=== PATIENT | female | born 1935 | race Caucasian/White ===

== ENCOUNTER 2022-09-25 22:33 | Emergency (ER) | payer MEDICARE, SELFPAY ==
--- NOTE | ~2022-09-25 | CT_ITS ---
Non-contrast Head CT History: Status post fall Technique: Axial non-contrast imaging of the brain was performed. Dose reduction technique was used on this scan by utilizing automated exposure control and iterative reconstruction technique. The dose -length product (DLP) was 681.00 mGy-cm. Findings: Questionable small hemorrhagic contusion in the left frontal lobe versus beam hardening art ifact (axial image 32). There is an arachnoid cyst at the right cerebellopontine angle, measuring aram roximately 3.3 x 1.7 cm. No acute infarct seen. There are minimal chronic white matter changes in the periventricular white matter bilaterally. The ventricles and subarachnoid spaces are normal in size. The calvarium appears normal. The visualized paranasal sinuses and mastoid air cells are clear. Impression: Questionable small focal hemorrhagic contusion at the left frontal lobe versus beam hardening artifac t and associated artifactual increased density. 3.3 x 1.7 cm right cerebellopontine angle arachnoid cyst. Reviewed, dictated and finalized at location . Impression: Questionable small focal hemorrhagic contusion at the left frontal lobe versus beam hardening artifact and associated artifactual increased density. 3.3 x 1.7 cm right cerebellopontine angle arachnoid cyst.
--- NOTE | ~2022-09-25 | XR_ITS ---
Portable chest x-ray Comparison: None Clinical History: Shortness of breath Findings: Lungs are clear, without focal consolidation or pleural effusion. Cardiomediastinal silho uette is enlarged. Bones and soft tissues are unremarkable. Impression: Clear lungs. Questionable COPD. Cardiomegaly. Reviewed, dictated and finalized at location . Impression: Clear lungs. Questionable COPD. Cardiomegaly.
[2022-09-25 22:36] VITALS: BP 147/84; PULSE 83; RESP 18; TEMP 36.3; O2SAT 97
--- NOTE | 2022-09-26 00:52 | ED.GENADULT ---
HPI - General Adult General Chief complaint: Fall Stated complaint: fall, head injury Time Seen by Provider: 09/25/22 23:12 History of Present Illness HPI narrative: This is a pleasant 87-year-old female presenting ED after a fall at home. She was trying to kill a spider in her bathroom when she tripped and fell over backwards. She did hit the back of her head but no loss of consciousness. She is on Eliquis. At this time she has no injuries. Patient has dementia at baseline is A&O times 1-2. She is accompanied by her 2 daughters. Exam Narrative: APPEARANCE: No apparent distress. Head: atraumatic. EYES: EOMI, NOSE: Atraumatic NECK: Trachea midline RESPIRATORY: No increased rate of breathing , clear to auscultation CARDIOVASCULAR: RRR, no peripheral edema ABDOMINAL: Non-distended soft no guarding or rebound MUSCULOSKELETAl: head to toe trauma exam was negative for injury NEURO: Alert.Cranial nerves 2-12 grossly intact. Sensation light touch, motor function cerebellar function intact for 4 extremities. Gait exam was normal. SKIN:: Warm, dry. Normal color PSYCHIATRIC: Normal affect Course Vital Signs Vital signs: Vital Signs Temperature 97.3 F L 09/25/22 22:36 Pulse Rate 83 09/25/22 22:36 Respiratory Rate 18 09/25/22 22:36 Blood Pressure 147/84 H 09/25/22 22:36 Pulse Oximetry 97 09/25/22 22:36 Oxygen Delivery Room Air 09/25/22 22:36 Temperature 97.3 F L 09/25/22 22:36 Pulse Rate 75 09/26/22 01:58 Respiratory Rate 17 09/26/22 01:58 Blood Pressure 157/84 H 09/26/22 01:58 Pulse Oximetry 99 09/26/22 01:58 Oxygen Delivery Room Air 09/25/22 22:36 Medical Decision Making MDM Narrative Medical decision making narrative: -Presentation: 87-year-old female presenting after fall on Eliquis. CT head has been ordered. Family has requested screening lab work and UA. -DDX includes but is not limited to: intracranial hemorrhage, closed head injury, dehydration, UTI, pneumonia -Co-morbidities complicating care: dementia, anticoagulation -Social determinants of health: patient is retired and used to work as a area secretary at [employer], she stays with her daughters -External Chart Review: none -Hx from independent Sources: daughters at bedside -Independent interpretation of studies: CT head negative for acute intracranial injury. BC normal. Metabolic panel creatinine of 1.2 but we have no baseline to compare. Urine showed +4 bacteria and positive nitrites but no white blood cells or leuk esterase. We discussed risk/benefits of treatment versus waiting for culture results with family and is she is asymptomatic we will wait for culture results. Chest x-ray showed cardiomegaly but no acute findings. Patient has no respiratory complaints this time -Discussion of Management/Consultants: None -Dx tests considered but not ordered: none -Procedures: none -Interventions: none -Shared decision making / Disposition: Patient's workup was negative. She is able to walk with a steady gait. Patient will be discharged home with primary care follow-up and return precautions. -RX Vital Signs Vital Signs: Vital Signs Temperature 97.3 F L 09/25/22 22:36 Pulse Rate 83 09/25/22 22:36 Respiratory Rate 18 09/25/22 22:36 Blood Pressure 147/84 H 09/25/22 22:36 Pulse Oximetry 97 09/25/22 22:36 Oxygen Delivery Room Air 09/25/22 22:36 Temperature 97.3 F L 09/25/22 22:36 Pulse Rate 75 09/26/22 01:58 Respiratory Rate 17 09/26/22 01:58 Blood Pressure 157/84 H 09/26/22 01:58 Pulse Oximetry 99 09/26/22 01:58 Oxygen Delivery Room Air 09/25/22 22:36 Lab Data 09/26/22 00:54 09/26/22 00:54 Labs: Lab Results 09/26/22 09/26/22 Range/Units 00:54 01:26 WBC 10.6 H (4.5-10.0) K/mm3 RBC 3.99 L (4.2-5.4) M/mm3 Hgb 12.1 (12.0-15.0) g/dL Hct 39.2 (37.0-47.0) % MCV 98.2 (80-100)
[2022-09-26 01:00] LABS: Basophils Percent Auto 0.4 % (0.2-1.2); Eosinophils Absolute Auto 0.1 K/mm3 (0-0.3); Eosinophils Percent Auto 0.9 % (0-4.4); Hematocrit 39.2 % (37.0-47.0); Hemoglobin 12.1 g/dL (12.0-15.0); Immature Granulocyte Absolute 0.04 K/mm3 (0.00-0.031); Immature Granulocyte Percent A 0.4 % (0-0.5); Lymphocytes Absolute Auto 1.21 K/mm3 (0.9-3.2); Lymphocytes Percent Auto 11.4 % (18.3-44.2); Mean Corpuscular HGB Conc 30.9 g/dl (32-36); Mean Corpuscular Hemoglobin 30.3 pg (26-34); Mean Corpuscular Volume 98.2 fl (80-100); Mean Platelet Volume 8.7 fl (7.4-10.4); Monocytes Absolute Auto 0.8 K/mm3 (0.1-0.6); Monocytes Percent Auto 7.9 % (2.6-8.5); Neutrophils Absolute Auto 8.4 K/mm3 (1.3-6.7); Platelet Count Result 273 k/mm3 (150-375); Red Blood Count 3.99 M/mm3 (4.2-5.4); White Blood Count 10.6 K/mm3 (4.5-10.0)
[2022-09-26 01:08] LABS: Anion Gap 3 mmol/L (8-16); Blood Urea Nitrogen 25 mg/dL (7-17); Calcium 8.8 mg/dL (8.4-10.2); Carbon Dioxide 30 mmol/L (22-30); Chloride 107 mmol/L (98-107); Estimated CRCL calculation 33 ml/min; Estimated Glomerular Filt Rate 42; Glucose 125 mg/dL (65-110); Potassium 3.5 mmol/L (3.4-5.0); Sodium 140 mmol/L (137-145)
[2022-09-26 01:58] VITALS: BP 157/84; PULSE 75; RESP 17; O2SAT 99
[2022-09-26 02:07] LABS: Appearance Urine Clear (Clear); Bacteria Urine 4+ /hpf; Bilirubin Urine Negative (Negative); Blood Urine Trace (Negative); Color Urine Yellow (Yellow); Glucose Urine UA Negative (Negative); Ketones Urine Negative (Negative); Leukocyte Esterase Ur Negative LEU/UL (Negative); Need Manual Microscopic Reviewed; Nitrate Urine Positive (Negative); Protein Urine 1+ mg/dL (Negative); RBC Urine 0-2 /hpf (0-2); Specific Grav Ur 1.016 (1.001-1.035); Squamous Epithelial Cell Urine None seen /hpf (Few); Urobilinogen Urine 0.2 mg/dL (<2.0); WBC Urine 0-5 /hpf; pH Urine 5.5 (5.0-9.0)
[2022-09-26 02:08] LABS: Add Urine Microscopic? YES; Mucus Urine Present /lpf
== END 2022-09-26 02:42 | disposition home or self-care (01) ==
PROVIDERS: Emergency Provider Emergency Medicine
DX: S09.90XA Unspecified injury of head, initial encounter (principal); F03.90 Unspecified dementia, unspecified severity, without behavioral disturbance, psychotic disturbance, mood disturbance, and anxiety; Z79.01 Long term (current) use of anticoagulants; W01.0XXA Fall on same level from slipping, tripping and stumbling without subsequent striking against object, initial encounter; Y92.002 Bathroom of unspecified non-institutional (private) residence as the place of occurrence of the external cause
CPT/HCPCS: 36415; 70450; 71045; 80048; 81001; 85025; 99284

== ENCOUNTER 2023-01-07 19:05 | Inpatient (IN) | payer MEDICARE, SELFPAY ==
--- NOTE | ~2023-01-07 | XR_ITS ---
EXAMINATION: XR chest 2V DATE: 01/11/2023 09:43 INDICATION: Pneumonia. TECHNIQUE: Frontal and lateral views of the chest were obtained. COMPARISON: Chest single view 01/07/2023 FINDINGS: There is a large hiatal hernia. There are tiny pleural effusions. There are airspace opacit ies at left lung base. No pneumothorax. Cardiomegaly is noted. IMPRESSION: 1. Airspace opacities at left lung base, consistent with atelectasis versus pneumonia. 2. Tiny pleural effusions. 3. Cardiomegaly. 4. Large hiatal hernia. Reviewed, dictated and finalized at location A. IMPRESSION: 1. Airspace opacities at left lung base, consistent with atelectasis versus pne umonia. 2. Tiny pleural effusions. 3. Cardiomegaly. 4. Large hiatal hernia.
--- NOTE | ~2023-01-07 | XR_ITS ---
EXAMINATION: XR chest 1V portable DATE: 01/07/2023 23:02 INDICATION: Wheezing. Fever and chills. TECHNIQUE: A single frontal view of the chest was obtained. COMPARISON: Chest single view 09/26/2022 FINDINGS: The patient is rotated to her left. There is mild atelectasis in lingula. No pleural effusi on or pneumothorax. Cardiomegaly is noted. There is a large hiatal hernia. IMPRESSION: 1. Mild atelectasis in lingula. 2. Cardiomegaly. 3. Large hiatal hernia. Reviewed, dictated and finalized at location A.
[2023-01-07 19:15] VITALS: BP 155/105; PULSE 96; RESP 22; TEMP 37.8; O2SAT 96
[2023-01-07 20:55] LABS: Appearance Urine Slightly Cloudy (Clear); Bilirubin Urine Negative (Negative); Blood Urine Trace-lysed (Negative); Color Urine Yellow (Yellow); Glucose Urine UA Negative (Negative); Ketones Urine Negative (Negative); Leukocyte Esterase Ur Negative LEU/UL (Negative); Nitrate Urine Positive (Negative); Protein Urine 1+ mg/dL (Negative); Specific Grav Ur 1.015 (1.001-1.035); Urobilinogen Urine 0.2 mg/dL (<2.0)
[2023-01-07 20:57] LABS: Bacteria Urine 4+ /hpf; Non Pathogenic Casts 0-2; Squamous Epithelial Cell Urine None seen /hpf (Few); WBC Urine 0-5 /hpf
[2023-01-07 20:58] LABS: Add Urine Microscopic? YES
--- NOTE | 2023-01-07 21:59 | ED.NAVMDI ---
HPI - Nausea/Vomiting/Diarrhea General Chief complaint: Nausea/Vomiting/Diarrhea <Beatriz Rhodes APRN - Last Filed: 01/08/23 03:43> Stated complaint: nausea, vomiting, chills <Beatriz Rhodes APRN - Last Filed: 01/08/23 03:43> Time Seen by Provider: 01/07/23 21:52 <Beatriz Rhodes APRN - Last Filed: 01/08/23 03:43> Source: patient and family (daughters at bedside) <Beatriz Rhodes APRN - Last Filed: 01/08/23 03:43> Mode of arrival: ambulatory <Beatriz Rhodes APRN - Last Filed: 01/08/23 03:43> Limitations: no limitations <Beatriz Rhodes APRN - Last Filed: 01/08/23 03:43> History of Present Illness HPI Narrative: patient is a pleasant 87-year-old female with a past medical history as noted below presents emergency department today ambulatory with both of her daughters for evaluation of generalized fatigue, fever, chills that started about 5 this evening. She has had 1 episode of vomiting and has been nauseated. She denies having any significant diarrhea. She denies any chest pain. She does state that she feels a little bit more short of breath than normal recently. Per her daughter's her breathing with the wheezing and increased rate has been normal for her over the last year but she did seem more weak today and short of breath starting around 6 pm. she also hasn't been eating or drinking much. Patient denies any abdominal pain. Denies any pain with urination. Denies any known exposure to any illness or the flu. Denies recent falls. Denies any cough. <Beatriz Rhodes APRN - Last Filed: 01/08/23 03:43> Related Data Home medications: Home Medications Medication Instructions Recorded Confirmed apixaban 5 mg tablet (Eliquis) 5 mg PO BID 01/07/23 01/08/23 diltiazem HCl 120 mg tablet 120 mg PO BID 01/07/23 01/08/23 ferrous sulfate 325 mg (65 mg 325 mg PO TIDWMEAL 01/07/23 01/08/23 iron) tablet folic acid 1 mg tablet 1 mg PO DAILY 01/07/23 01/08/23 furosemide 20 mg tablet 20 mg PO DAILY 01/07/23 01/08/23 latanoprost 0.005 % eye drops 1 drp EACH EYE HS 01/07/23 01/08/23 levothyroxine 25 mcg tablet 25 mcg PO DAILY 01/07/23 01/08/23 metoprolol succinate 100 mg 200 mg PO DAILY 01/07/23 01/08/23 tablet,extended release 24 hr simvastatin 20 mg tablet 20 mg PO HS 01/07/23 01/08/23 acidophilus 100 million 1 cap PO DAILY 01/08/23 01/08/23 cell-pectin, citrus 10 mg capsule cholecalciferol (vitamin D3) 125 125 mcg PO DAILY 01/08/23 01/08/23 mcg (5,000 unit) capsule cyanocobalamin (vitamin B-12) 100 100 mcg PO EVERY OTHER DAY 01/08/23 01/08/23 mcg tablet vit C 250 mg-vit E 90 mg-zinc 40 1 tablet PO BID 01/08/23 01/08/23 mg-copper 1 [id number] capsule (PreserVision AREDS-2) <Beatriz Rhodes APRN - Last Filed: 01/08/23 03:43> Allergies/Adverse reactions: Allergies Allergy/AdvReac Type Severity Reaction Status Date / Time cephalexin [From Keflex] Allergy Hives Verified 01/08/23 04:15 <Beatriz Rhodes APRN - Last Filed: 01/08/23 03:43> Review of Systems Review of Systems: CONSTITUTIONAL: +fever/chills, generalized malaise and fatigue. denies sweats. decreased appeitite. EYES: Denies visual changes, redness, or discharge. ENT: Denies rhinorrhea, congestion, sore throat, or otalgia. CARDIOVASCULAR: Denies chest pain, palpitations, or edema. RESPIRATORY:+ increased SOB, denies any new cough. GASTROINTESTINAL: +nausea persistently since yesterday, 1 episode of vomiting. denies diarrhea. denies abdominal pain. GENITOURINARY: Denies dysuria or hematuria. SKIN: Denies rash or itching. MUSCULOSKELETAL: Denies back pain, joint pain, or myalgia. NEUROLOGIC: Denies headache, numbness, or unilateral weakness. PSYCHIATRIC: Denies anxiety or depression. <Beatriz Rhodes APRN - Last Filed: 01/08/23 03:43> All systems reviewed & are unremarkable except as noted in HPI and below <Beatriz Rhodes APRN - Last Filed: 01/08/23 03:43> [facility] Family History Family Histo
--- NOTE | 2023-01-07 22:53 | ECG_ITS ---
Measurements Intervals [place] Rate: 96 P: PA: 0 QRS: 36 QRSD: 132 T: -23 QT: 359 QTc: 454 Interpretive Statements ATRIAL FIBRILLATION INTRAVENTRICULAR CONDUCTION DELAY [130+ ms QRS DURATION] ABNORMAL ECG NO PREVIOUS ECG AVAILABLE FOR COMPARISON Electronically Signed On 01-08-2023 9:29:23 CDT by Wilbur Castillo M.D.
--- NOTE | 2023-01-07 23:18 | PC.NURSE ---
Report given to QING Casiano, no questions/concerns. Care of pt transferred.
[2023-01-07] MEDS: SODIUM CHLORIDE 0.9% IV 1,000 ML 999 ML IV CONT (23:20)
[2023-01-07] MEDS: ACETAMINOPHEN 500 MG TABLET 1000 MG PO (23:20)
[2023-01-07] MEDS: ONDANSETRON INJ 4 MG/2 ML VIAL IV PUSH (23:22)
[2023-01-07] MEDS: FAMOTIDINE 20 MG/2 ML VIAL IV PUSH (23:22)
--- NOTE | 2023-01-07 23:29 | PC.NURSE ---
Report received from QING Deras. Assumed care of patient at this time. Patients family request to give patient her scheduled home nightly meds. ERP states that is okay. Patient given nightly meds she brought with her as well as placed on 2L via NC for RA sat of 88%. ERP notified.
[2023-01-07 23:31] VITALS: O2SAT 96
[2023-01-07 23:48] VITALS: BP 180/90; PULSE 107; RESP 34; O2SAT 98
[2023-01-07 23:50] VITALS: TEMP 36.7
[2023-01-08] VITALS (17 sets, daily range): BP systolic 114–154; BP diastolic 53–91; PULSE 54–91; RESP 18–27; TEMP 35.8–36.9; O2SAT 88–99; BMI 45.1
[2023-01-08 00:06] LABS: Alanine Aminotransferase 116 U/L (6-35); Albumin Level 3.4 g/dL (3.5-5.1); Alkaline Phosphatase 121 U/L (38-126); Anion Gap 6 mmol/L (8-16); Aspartate Amino Transferase 96 U/L (14-36); Bilirubin,Total 1.1 mg/dL (0.2-1.3); Blood Urea Nitrogen 21 mg/dL (7-17); Carbon Dioxide 24 mmol/L (22-30); Chloride 102 mmol/L (98-107); Estimated CRCL calculation 32 ml/min; Estimated Glomerular Filt Rate 39; Glucose 131 mg/dL (65-110); Lactic Acid Reflex 0.9 mmol/L (0.7-2.0); Lipase 117 U/L (23-300); Magnesium 1.8 mg/dL (1.6-2.3); Potassium 3.6 mmol/L (3.4-5.0); Sodium 132 mmol/L (137-145)
[2023-01-08 00:07] LABS: Basophils Percent Auto 0.2 % (0.2-1.2); Hemoglobin 11.4 g/dL (12.0-15.0); Immature Granulocyte Absolute 0.08 K/mm3 (0.00-0.031); Immature Granulocyte Percent A 0.5 % (0-0.5); Lymphocytes Absolute Auto 0.45 K/mm3 (0.9-3.2); Lymphocytes Percent Auto 2.9 % (18.3-44.2); Mean Corpuscular HGB Conc 31.7 g/dl (32-36); Mean Corpuscular Hemoglobin 30.8 pg (26-34); Mean Corpuscular Volume 97.3 fl (80-100); Mean Platelet Volume 9.2 fl (7.4-10.4); Monocytes Absolute Auto 1.4 K/mm3 (0.1-0.6); Monocytes Percent Auto 8.9 % (2.6-8.5); Neutrophils Absolute Auto 13.4 K/mm3 (1.3-6.7); Neutrophils Percent Auto 87.5 % (45.5-73.1); Platelet Count Result 241 k/mm3 (150-375); Red Cell Distribution Width 14.1 % (11.5-14.5); White Blood Count 15.3 K/mm3 (4.5-10.0)
[2023-01-08 00:17] LABS: Troponin I 0.019 ng/mL (0.000-0.034)
[2023-01-08 00:57] LABS: NT Pro B Type Natriuretic Pept 6700 pg/mL (19.9-100)
[2023-01-08 01:22] LABS: INR 1.7; Prothrombin Time 20.8 Seconds (11.1-14.7)
[2023-01-08 01:35] LABS: Influenza A QL RT-PCR Negative (Negative); Influenza B QL RT-PCR Negative (Negative); SARS-CoV-2 RNA PCR Negative (Negative)
[2023-01-08 01:38] LABS: D Dimer 0.78 ug/mL (<0.48)
[2023-01-08] MEDS: levoFLOXacin 750 MG/D5W 150 ML 750 MG/150 ML BAG 100 MG IVPB (02:24)
--- NOTE | 2023-01-08 03:13 | PC.NURSE ---
Patient ambulated to the bathroom with a stand by assist. Patient changed and new brief applied.
--- NOTE | 2023-01-08 04:00 | ADMGEN ---
This patient, Araseli Jeronimo, was admitted to 2 Medical Room 253-01. Patient/family oriented to hospital policies and general routines including ID bracelet, bed and alarms, visiting hours, pain management, procedures, bathroom and other care routines, personal items, smoking policy, room service/diet, and visiting hours. Information on how to activate the Rapid Response Team has been discussed. Patient/Family are encouraged to report perceived risks to care and to ask questions if they do not understand what they are told or what they should do.
--- NOTE | 2023-01-08 05:05 | PM.IMHP ---
H&P: HPI History of Present Illness Date/Time: 01/08/23 05:05 Chief Complaint: Patient was brought to the ER for evaluation for generalized fatigue, fever and chills Narrative: She is an 87 years old morbidly obese female who lives with family. She was brought to the ER for evaluation by her daughters as she is complaining of generalized fatigue, fever and chills that started yesterday afternoon at around 5:00 p.m. She also had nausea with one episode of vomiting. She also gets little bit more short of breath than usual with normal activity recently. She felt more weak than her baseline. She also has not been eating or drinking much. Workup was done in the ER which showed UTI and dehydration. She has been started on IV fluids, IV antibiotics and is being admitted for medical management and close monitoring. Review of Systems Review of Systems: she denies any chest pain, palpitations, loss of consciousness, falls or blurred vision All systems reviewed & are unremarkable except as noted in HPI and below PMFSH Past Medical History Medical History (Updated 01/08/23 @ 05:12 by Nicholas Amaya MD) Obstructive sleep apnea Family History Family History Father Emphysema lung Sibling Lung cancer Mother Dementia Heart disease Sibling Kidney cancer, primary, with metastasis from kidney to other site Social History Social History Smoking status: Never smoker Alcohol intake: never Substance use: never Lack of Transportation: No Lack of Food: Never True Current Housing: I Have Housing Concerned About Future Housing: No Difficulty Paying Gas/Electric Bills: No Difficulty Paying for Meds: No Currently Unemployed: No Education: High School Diploma/GED Difficulty w/ Childcare or Family Care: No Spiritual care concerns: No Meds Home Medications and Allergies Home Medications Medication Instructions Recorded Confirmed Type apixaban 5 mg tablet (Eliquis) 5 mg PO BID 01/07/23 01/08/23 History diltiazem HCl 120 mg tablet 120 mg PO BID 01/07/23 01/08/23 History ferrous sulfate 325 mg (65 mg 325 mg PO TIDWMEAL 01/07/23 01/08/23 History iron) tablet folic acid 1 mg tablet 1 mg PO DAILY 01/07/23 01/08/23 History furosemide 20 mg tablet 20 mg PO DAILY 01/07/23 01/08/23 History latanoprost 0.005 % eye drops 1 drp EACH EYE HS 01/07/23 01/08/23 History levothyroxine 25 mcg tablet 25 mcg PO DAILY 01/07/23 01/08/23 History metoprolol succinate 100 mg 200 mg PO DAILY 01/07/23 01/08/23 History tablet,extended release 24 hr simvastatin 20 mg tablet 20 mg PO HS 01/07/23 01/08/23 History acidophilus 100 million 1 cap PO DAILY 01/08/23 01/08/23 History cell-pectin, citrus 10 mg capsule cholecalciferol (vitamin D3) 125 125 mcg PO DAILY 01/08/23 01/08/23 History mcg (5,000 unit) capsule cyanocobalamin (vitamin B-12) 100 100 mcg PO EVERY OTHER DAY 01/08/23 01/08/23 History mcg tablet vit C 250 mg-vit E 90 mg-zinc 40 1 tablet PO BID 01/08/23 01/08/23 History mg-copper 1 [id number]-[id number] capsule (PreserVision AREDS-2) Allergies Allergy/AdvReac Type Severity Reaction Status Date / Time cephalexin [From Keflex] Allergy Hives Verified 01/08/23 04:15 Vital Signs Vital Signs - 24 hr 01/08/23 01:45 01/07/23 19:15 01/07/23 23:31 Temperature 37.8 C H Pulse Rate 96 Respiratory Rate 22 H Blood Pressure 155/105 H Pulse Oximetry 96 96 Pulse Oximetry [digit-finger] 88 L Oxygen Delivery Room Air Nasal Cannula Oxygen Flow Rate 2 01/07/23 23:48 01/08/23 00:33 01/07/23 23:50 Temperature 36.7 C 36.7 C Pulse Rate 107 H 91 Respiratory Rate 34 H 27 H Blood Pressure 180/90 H 153/62 H Pulse Oximetry 98 93 Pulse Oximetry [digit-finger] Oxygen Delivery Oxygen Flow Rate 01/08/23 02:32 01/08/23 02:33 01/08/23 02:45 Temperature Pulse Rate 62 62
[2023-01-08] MEDS: SODIUM CHLORIDE 0.9% IV 1,000 ML 75 ML IV CONT ×2 (05:51→20:21)
[2023-01-08] MEDS: POTASSIUM CHLORIDE 20 MEQ ER TABLET 40 MEQ PO (05:52)
[2023-01-08] MEDS: LEVOTHYROXINE SODIUM 25 MCG TABLET PO (05:52)
[2023-01-08 08:05] LABS: Anion Gap 5 mmol/L (8-16); Blood Urea Nitrogen 22 mg/dL (7-17); Calcium 7.7 mg/dL (8.4-10.2); Carbon Dioxide 28 mmol/L (22-30); Chloride 103 mmol/L (98-107); Estimated CRCL calculation 28 ml/min; Estimated Glomerular Filt Rate 36; Glucose 97 mg/dL (65-110); Magnesium 1.8 mg/dL (1.6-2.3); Potassium 3.7 mmol/L (3.4-5.0); Sodium 136 mmol/L (137-145)
--- NOTE | 2023-01-08 08:14 | PM.IMPN ---
Progress Note: A&P Assessment and Plan (1) Acute UTI: Code(s): N39.0 - Urinary tract infection, site not specified Status: Acute Assessment and Plan: Continue Levaquin started 01/08 (2) Fever: Code(s): R50.9 - Fever, unspecified Status: Acute Assessment and Plan: See above (3) Generalized weakness: Code(s): R53.1 - Weakness Status: Acute Assessment and Plan: Likely secondary to dehydration, reassess after IV fluid resuscitation (4) Oxygen desaturation during sleep: Code(s): G47.34 - Idiopathic sleep related nonobstructive alveolar hypoventilation Status: Acute (5) Nausea & vomiting: Code(s): R11.2 - Nausea with vomiting, unspecified Status: Acute (6) Hypertension: Code(s): I10 - Essential (primary) hypertension Status: Acute Assessment and Plan: Blood pressures reviewed 01/08 (7) Obstructive sleep apnea: Code(s): G47.33 - Obstructive sleep apnea (adult) (pediatric) Status: Acute Plan DVT prophylaxis with SCDs GI prophylaxis not indicated Code status full code Subjective Date/time seen: 01/08/23 08:14 Interval history: 87-year-old female with history of sleep apnea is presenting with fatigue and fever and currently being treated for UTI and dehydration. No overnight events noted. No chest pain or shortness of breath. No nausea, vomiting or diarrhea. No fevers or chills. Review of Systems Review of Systems: 12 point review of systems was assessed and was negative except as noted in the HPI Exam Narrative: General: No acute distress, alert and oriented per baseline HEENT: Atraumatic, normocephalic, mucous membranes moist CV: Regular rate and rhythm, S1, S2 Lungs: Clear to auscultation bilaterally, no rales or crackles noted, no wheezes, good air entry Abdomen: Soft, nontender, nondistended Extremities: Normal to inspection Skin: No rashes noted, no lesions or wounds seen Psych: Euthymic, normal affect Objective Data Vital Signs Vital Signs: Vital Signs - 24 hr 01/08/23 01:45 01/07/23 19:15 01/07/23 23:31 Temperature 100.0 F H Pulse Rate 96 Respiratory Rate 22 H Blood Pressure 155/105 H Pulse Oximetry 96 96 Pulse Oximetry [digit-finger] 88 L Oxygen Delivery Room Air Nasal Cannula Oxygen Flow Rate 2 01/07/23 23:48 01/08/23 00:33 01/07/23 23:50 Temperature 98.1 F 98.1 F Pulse Rate 107 H 91 Respiratory Rate 34 H 27 H Blood Pressure 180/90 H 153/62 H Pulse Oximetry 98 93 Pulse Oximetry [digit-finger] Oxygen Delivery Oxygen Flow Rate 01/08/23 02:32 01/08/23 02:33 01/08/23 02:45 Temperature Pulse Rate 62 62 54 L Respiratory Rate 26 H 26 H Blood Pressure 117/91 H Pulse Oximetry 94 94 92 Pulse Oximetry [digit-finger] Oxygen Delivery Oxygen Flow Rate 01/08/23 03:00 01/08/23 03:35 01/08/23 03:41 Temperature Pulse Rate 68 56 L 61 Respiratory Rate 25 H 20 19 Blood Pressure 114/53 L 114/53 L Pulse Oximetry 93 93 Pulse Oximetry [digit-finger] Oxygen Delivery Oxygen Flow Rate 01/08/23 03:58 01/08/23 04:02 01/08/23 04:27 Temperature 96.4 F L 96.4 F L Pulse Rate 71 71 Respiratory Rate 20 20 Blood Pressure 130/61 130/61 Pulse Oximetry 99 99 99 Pulse Oximetry [digit-finger] Oxygen Delivery Nasal Cannula Oxygen Flow Rate 2 Intake/Output Intake/Output: Intake & Output 01/05/23 01/06/23 01/07/23 01/08/23 23:59 23:59 23:59 23:59 Intake Total 1150 Output Total 300 Balance 850 Meds/Results Medications: Active Medications Generic Name Dose Route Start Last Admin Trade Name Freq PRN Reason Stop Dose Admin Acetaminophen 650 mg 01/08/23 05:16 Acetaminophen 325 Mg Tablet PO Q4H PRN Mild Pain (1-3) or Fever Al Hydrox/Mg Hydrox/Simethicone 30 ml 01/08/23 05:16 Mag Hydrox/Al Hydrox/Simeth 30 Ml Udc PO QID
[2023-01-08] MEDS: CHOLECALCIFEROL 1,000 UNITS TABLET 5000 UNITS PO (08:23)
[2023-01-08] MEDS: dilTIAZem HCL 60 MG TABLET 120 MG PO ×2 (08:24→20:21)
[2023-01-08] MEDS: APIXABAN 5 MG TABLET PO ×2 (08:24→20:21)
[2023-01-08] MEDS: ACIDOPHILUS/BULGARICUS CHEWABLE TABLET 1 TABLET BY MOUTH (08:24)
[2023-01-08] MEDS: OPTI-GEN TAB 1 TABLET PO (08:27)
[2023-01-08] MEDS: METOPROLOL SUCCINATE EXT REL 100 MG TABCR 200 MG PO (08:27)
[2023-01-08] MEDS: FOLIC ACID 1 MG TABLET PO (08:27)
[2023-01-08] MEDS: FERROUS SULFATE 325 MG TABLET DR BY MOUTH ×3 (08:27→16:58)
[2023-01-08] MEDS: CYANOCOBALAMIN 250 MCG TABLET PO (08:27)
[2023-01-08 08:33] LABS: Basophils Percent Auto 0.3 % (0.2-1.2); Eosinophils Percent Auto 0.2 % (0-4.4); Hematocrit 35.9 % (37.0-47.0); Hemoglobin 11.1 g/dL (12.0-15.0); Immature Granulocyte Absolute 0.07 K/mm3 (0.00-0.031); Immature Granulocyte Percent A 0.6 % (0-0.5); Lymphocytes Absolute Auto 0.62 K/mm3 (0.9-3.2); Lymphocytes Percent Auto 5.1 % (18.3-44.2); Mean Corpuscular HGB Conc 30.9 g/dl (32-36); Mean Corpuscular Hemoglobin 30.5 pg (26-34); Mean Corpuscular Volume 98.6 fl (80-100); Mean Platelet Volume 9.2 fl (7.4-10.4); Monocytes Absolute Auto 1.1 K/mm3 (0.1-0.6); Monocytes Percent Auto 9.1 % (2.6-8.5); Neutrophils Absolute Auto 10.4 K/mm3 (1.3-6.7); Neutrophils Percent Auto 84.7 % (45.5-73.1); Platelet Count Result 208 k/mm3 (150-375); Red Blood Count 3.64 M/mm3 (4.2-5.4); White Blood Count 12.3 K/mm3 (4.5-10.0)
[2023-01-08] MEDS: SIMVASTATIN 20 MG TABLET PO (20:21)
[2023-01-08] MEDS: LATANOPROST 0.005% OP SOLN 2.5 ML BTL 1 DROP EACH EYE (20:22)
[2023-01-08] MEDS: TOLNAFTATE 1% POWDER 45 GM BTL 1 APPLIC TOPICAL (22:53)
[2023-01-09] VITALS: BP 154/73; PULSE 107; RESP 20; TEMP 36.6; O2SAT 94
[2023-01-09 04:00] VITALS: BP 137/77; PULSE 90; RESP 32; TEMP 36.4; O2SAT 100
[2023-01-09 05:53] LABS: Basophils Percent Auto 0.3 % (0.2-1.2); Hematocrit 36.4 % (37.0-47.0); Hemoglobin 10.8 g/dL (12.0-15.0); Immature Granulocyte Absolute 0.08 K/mm3 (0.00-0.031); Immature Granulocyte Percent A 0.7 % (0-0.5); Lymphocytes Absolute Auto 0.51 K/mm3 (0.9-3.2); Lymphocytes Percent Auto 4.4 % (18.3-44.2); Mean Corpuscular HGB Conc 29.7 g/dl (32-36); Mean Corpuscular Hemoglobin 30.6 pg (26-34); Mean Corpuscular Volume 103.1 fl (80-100); Mean Platelet Volume 9.2 fl (7.4-10.4); Monocytes Absolute Auto 1.1 K/mm3 (0.1-0.6); Monocytes Percent Auto 9.7 % (2.6-8.5); Neutrophils Absolute Auto 9.7 K/mm3 (1.3-6.7); Neutrophils Percent Auto 84.9 % (45.5-73.1); Platelet Count Result 199 k/mm3 (150-375); Red Blood Count 3.53 M/mm3 (4.2-5.4); White Blood Count 11.5 K/mm3 (4.5-10.0)
[2023-01-09 06:05] LABS: Alanine Aminotransferase 68 U/L (6-35); Alkaline Phosphatase 130 U/L (38-126); Anion Gap 6 mmol/L (8-16); Aspartate Amino Transferase 35 U/L (14-36); Bilirubin,Total 0.6 mg/dL (0.2-1.3); Blood Urea Nitrogen 24 mg/dL (7-17); Calcium 8.1 mg/dL (8.4-10.2); Carbon Dioxide 22 mmol/L (22-30); Chloride 106 mmol/L (98-107); Estimated CRCL calculation 32 ml/min; Estimated Glomerular Filt Rate 42; Glucose 120 mg/dL (65-110); Potassium 4.3 mmol/L (3.4-5.0); Sodium 134 mmol/L (137-145)
[2023-01-09] MEDS: LEVOTHYROXINE SODIUM 25 MCG TABLET PO (06:32)
[2023-01-09 09:04] VITALS: BP 144/78; PULSE 77; RESP 18; TEMP 36.6; O2SAT 97
[2023-01-09 09:26] VITALS: PULSE 87
[2023-01-09] MEDS: FERROUS SULFATE 325 MG TABLET DR BY MOUTH ×3 (09:26→17:20)
[2023-01-09] MEDS: METOPROLOL SUCCINATE EXT REL 100 MG TABCR 200 MG PO (09:26)
[2023-01-09] MEDS: dilTIAZem HCL 60 MG TABLET 120 MG PO ×2 (09:26→21:09)
[2023-01-09] MEDS: OPTI-GEN TAB 1 TABLET PO (09:26)
[2023-01-09] MEDS: APIXABAN 5 MG TABLET PO ×2 (09:26→21:09)
[2023-01-09] MEDS: FOLIC ACID 1 MG TABLET PO (09:26)
[2023-01-09] MEDS: CHOLECALCIFEROL 1,000 UNITS TABLET 5000 UNITS PO (09:28)
[2023-01-09] MEDS: ACIDOPHILUS/BULGARICUS CHEWABLE TABLET 1 TABLET BY MOUTH (09:29)
[2023-01-09] MEDS: SODIUM CHLORIDE 0.9% IV 1,000 ML 75 ML IV CONT ×2 (09:29→21:09)
[2023-01-09] MEDS: TOLNAFTATE 1% POWDER 45 GM BTL 1 APPLIC TOPICAL ×2 (09:30→21:09)
--- NOTE | 2023-01-09 11:07 | PM.IMPN ---
Progress Note: A&P Assessment and Plan (1) Acute UTI: Code(s): N39.0 - Urinary tract infection, site not specified Status: Acute Assessment and Plan: Continue Levaquin started 01/08 (2) Fever: Code(s): R50.9 - Fever, unspecified Status: Acute Assessment and Plan: See above (3) Generalized weakness: Code(s): R53.1 - Weakness Status: Acute Assessment and Plan: Likely secondary to dehydration, reassess after IV fluid resuscitation (4) Oxygen desaturation during sleep: Code(s): G47.34 - Idiopathic sleep related nonobstructive alveolar hypoventilation Status: Acute (5) Nausea & vomiting: Code(s): R11.2 - Nausea with vomiting, unspecified Status: Acute (6) Hypertension: Code(s): I10 - Essential (primary) hypertension Status: Acute Assessment and Plan: Blood pressures reviewed 01/09 (7) Obstructive sleep apnea: Code(s): G47.33 - Obstructive sleep apnea (adult) (pediatric) Status: Acute (8) Bacteremia: Code(s): R78.81 - Bacteremia Status: Acute Assessment and Plan: 1 of 4 blood cultures positive for Gram-negative bacilli, repeat pending, only found in the aerobic bottle Clinically improving, continue current management Plan DVT prophylaxis with SCDs GI prophylaxis not indicated Code status full code Subjective Date/time seen: 01/09/23 11:07 Interval history: 87-year-old female with history of sleep apnea is presenting with fatigue and fever and currently being treated for UTI and dehydration. No overnight events noted. No chest pain or shortness of breath. No nausea, vomiting or diarrhea. No fevers or chills. Review of Systems Review of Systems: 12 point review of systems was assessed and was negative except as noted in the HPI Exam Narrative: General: No acute distress, alert and oriented per baseline HEENT: Atraumatic, normocephalic, mucous membranes moist CV: Regular rate and rhythm, S1, S2 Lungs: Clear to auscultation bilaterally, no rales or crackles noted, no wheezes, good air entry Abdomen: Soft, nontender, nondistended Extremities: Normal to inspection Skin: No rashes noted, no lesions or wounds seen Psych: Euthymic, normal affect Objective Data Vital Signs Vital Signs: Vital Signs - 24 hr 01/08/23 13:28 01/08/23 17:05 01/08/23 20:00 Temperature 98.5 F 98.1 F 98.3 F Pulse Rate 78 86 89 Respiratory Rate 18 18 20 Blood Pressure 138/67 154/75 H 152/80 H Pulse Oximetry 96 98 99 Oxygen Delivery 01/08/23 20:00 01/08/23 20:00 01/09/23 00:00 Temperature 98.3 F 97.9 F Pulse Rate 89 107 H Respiratory Rate 20 20 Blood Pressure 152/80 H 154/73 H Pulse Oximetry 99 94 Oxygen Delivery Room Air 01/09/23 00:00 01/09/23 04:00 01/09/23 09:04 Temperature 97.9 F 97.5 F L 97.8 F Pulse Rate 107 H 90 77 Respiratory Rate 20 32 H 18 Blood Pressure 154/73 H 137/77 144/78 H Pulse Oximetry 94 100 97 Oxygen Delivery 01/09/23 09:26 Temperature Pulse Rate 87 Respiratory Rate Blood Pressure Pulse Oximetry Oxygen Delivery Intake/Output Intake/Output: Intake & Output 01/06/23 01/07/23 01/08/23 01/09/23 23:59 23:59 23:59 23:59 Intake Total 2820 1630 Output Total 700 200 Balance 2120 1430 Meds/Results Medications: Active Medications Generic Name Dose Route Start Last Admin Trade Name Freq PRN Reason Stop Dose Admin Acetaminophen 650 mg 01/08/23 05:16 Acetaminophen 325 Mg Tablet PO Q4H PRN Mild Pain (1-3) or Fever Al Hydrox/Mg Hydrox/Simethicone 30 ml 01/08/23 05:16 Mag Hydrox/Al Hydrox/Simeth 30 Ml Udc PO QID PRN Dyspepsia Apixaban 5 mg 01/08/23 09:00 01/09/23 09:26 Apixaban 5 Mg Tablet PO 5 mg Q12HR JOSE MARTIN Administration Cyanocobalamin 250 mcg 01/08/23 09:00 01/08/23 08:27 Cyanocobalamin 250 Mcg Tablet PO 250 mcg Q48H
[2023-01-09 16:02] VITALS: BP 145/76; PULSE 69; RESP 16; TEMP 36; O2SAT 93
[2023-01-09 21:08] VITALS: BP 125/70; PULSE 89; RESP 12; TEMP 36.9; O2SAT 93
[2023-01-09] MEDS: LATANOPROST 0.005% OP SOLN 2.5 ML BTL 1 DROP EACH EYE (21:08)
[2023-01-09] MEDS: levoFLOXacin 750 MG/D5W 150 ML 750 MG/150 ML BAG 100 MG IVPB (21:09)
[2023-01-09] MEDS: SIMVASTATIN 20 MG TABLET PO (21:09)
[2023-01-10] VITALS (8 sets, daily range): BP systolic 126–149; BP diastolic 69–84; PULSE 72–93; RESP 13–18; TEMP 36.1–36.6; O2SAT 91–95
[2023-01-10] MEDS: ACETAMINOPHEN 325 MG TABLET 650 MG PO ×2 (01:13→20:26)
[2023-01-10] MEDS: traZODone HCL 50 MG TABLET PO ×2 (01:13→20:26)
[2023-01-10] MEDS: LEVOTHYROXINE SODIUM 25 MCG TABLET PO (05:42)
[2023-01-10 05:44] LABS: Basophils Percent Auto 0.4 % (0.2-1.2); Eosinophils Absolute Auto 0.1 K/mm3 (0-0.3); Hematocrit 32.8 % (37.0-47.0); Hemoglobin 9.8 g/dL (12.0-15.0); Immature Granulocyte Absolute 0.04 K/mm3 (0.00-0.031); Immature Granulocyte Percent A 0.5 % (0-0.5); Lymphocytes Absolute Auto 0.75 K/mm3 (0.9-3.2); Lymphocytes Percent Auto 9.4 % (18.3-44.2); Mean Corpuscular HGB Conc 29.9 g/dl (32-36); Mean Corpuscular Hemoglobin 30.5 pg (26-34); Mean Corpuscular Volume 102.2 fl (80-100); Monocytes Absolute Auto 1.3 K/mm3 (0.1-0.6); Monocytes Percent Auto 15.8 % (2.6-8.5); Neutrophils Absolute Auto 5.8 K/mm3 (1.3-6.7); Neutrophils Percent Auto 72.9 % (45.5-73.1); Platelet Count Result 188 k/mm3 (150-375); Red Blood Count 3.21 M/mm3 (4.2-5.4)
[2023-01-10 06:01] LABS: Alanine Aminotransferase 49 U/L (6-35); Albumin Level 2.7 g/dL (3.5-5.1); Alkaline Phosphatase 126 U/L (38-126); Anion Gap 4 mmol/L (8-16); Aspartate Amino Transferase 28 U/L (14-36); Bilirubin,Total 0.5 mg/dL (0.2-1.3); Blood Urea Nitrogen 29 mg/dL (7-17); Calcium 8.5 mg/dL (8.4-10.2); Carbon Dioxide 23 mmol/L (22-30); Chloride 109 mmol/L (98-107); Estimated CRCL calculation 32 ml/min; Estimated Glomerular Filt Rate 42; Glucose 96 mg/dL (65-110); Potassium 4.1 mmol/L (3.4-5.0); Sodium 136 mmol/L (137-145)
[2023-01-10] MEDS: CHOLECALCIFEROL 1,000 UNITS TABLET 5000 UNITS PO (08:51)
[2023-01-10] MEDS: ACIDOPHILUS/BULGARICUS CHEWABLE TABLET 1 TABLET BY MOUTH (08:53)
[2023-01-10] MEDS: dilTIAZem HCL 60 MG TABLET 120 MG PO ×2 (08:53→20:26)
[2023-01-10] MEDS: OPTI-GEN TAB 1 TABLET PO (08:53)
[2023-01-10] MEDS: CYANOCOBALAMIN 250 MCG TABLET PO (08:53)
[2023-01-10] MEDS: FOLIC ACID 1 MG TABLET PO (08:54)
[2023-01-10] MEDS: FERROUS SULFATE 325 MG TABLET DR BY MOUTH ×3 (08:54→18:18)
[2023-01-10] MEDS: APIXABAN 5 MG TABLET PO ×2 (08:54→20:26)
[2023-01-10] MEDS: METOPROLOL SUCCINATE EXT REL 100 MG TABCR 200 MG PO (08:54)
[2023-01-10] MEDS: TOLNAFTATE 1% POWDER 45 GM BTL 1 APPLIC TOPICAL ×2 (08:57→20:28)
--- NOTE | 2023-01-10 15:22 | PM.IMPN ---
Progress Note: A&P Assessment and Plan (1) Sepsis: Code(s): A41.9 - Sepsis, unspecified organism Status: Acute Assessment and Plan: Pateint presents with fever, leukocytosis, mild CHARLEY and elevated LFTs felt related to sepsis from UTI/bactermeia. UCx /8: EColi that is jordan-sensitive BCx 8: Klebsiella 1of2. Sensitivities pending. BCx 101/0: NGTD. CXR on admission showing mild atelectasis in lingula. Klebsiella could be from urine or PNA. Started on Levaquin and patient is improving. WBC normal. Allergy to cephalosporin. Follow up on cylture results. Repeat CXR. (2) Acute UTI: Code(s): N39.0 - Urinary tract infection, site not specified Status: Acute Assessment and Plan: UA noted and not too concerning for UTI but UCx positive. Continue Levaquin started 01/08 (3) Bacteremia: Code(s): R78.81 - Bacteremia Status: Acute Assessment and Plan: As above (4) Generalized weakness: Code(s): R53.1 - Weakness Status: Acute Assessment and Plan: Likely secondary to dehydration and sepsis. PT/OT (5) Oxygen desaturation during sleep: Code(s): G47.34 - Idiopathic sleep related nonobstructive alveolar hypoventilation Status: Acute Assessment and Plan: Check apnea link. Possibly related to KARISHMA. May need O2 at home (6) Hypertension: Code(s): I10 - Essential (primary) hypertension Status: Acute Assessment and Plan: Patient's blood pressure was reviewed on 01/10 Blood pressure remains well controlled. Will continue current medications. (7) Obstructive sleep apnea: Code(s): G47.33 - Obstructive sleep apnea (adult) (pediatric) Status: Acute Assessment and Plan: As above (8) Nausea & vomiting: Code(s): R11.2 - Nausea with vomiting, unspecified Status: Acute Assessment and Plan: Resolved Follow (9) Atrial fibrillation: Code(s): I48.91 - Unspecified atrial fibrillation Status: Acute Assessment and Plan: Patient with AFib noted by EKG. Suspect chronic. Continue Toprol to control rate. Continue Eliquis. Plan DVT prophylaxis with Eliquis GI prophylaxis not indicated Code status full code Subjective Date/time seen: 01/10/23 15:22 Interval history: 87-year-old female with history of sleep apnea is presenting with fatigue and fever and currently being treated for UTI and dehydration. Assuming care. Eating okay. Feels better. No CP or SOB. No cough. She is alert but confused so hx is suspect Review of Systems Review of Systems: ROS unobtainable: Yes unobtainable due to mental status Exam Narrative: AF 96.9 126/69 88 16 91% Gen - NARD Chest - Clear, distatn BS, nml RR CV - irregularly irregular Abd - Soft, NT/ND, Positive BS Ext - trace pedal edema Neuro - Alert, confused. Psych - Nml mood and affect Skin - Warm and dry Objective Data Vital Signs Vital Signs: Vital Signs - 24 hr 01/09/23 16:02 01/09/23 21:08 01/10/23 05:40 Temperature 96.8 F L 98.5 F 96.9 F L Pulse Rate 69 89 85 Respiratory Rate 16 12 13 Blood Pressure 145/76 H 125/70 126/69 Pulse Oximetry 93 93 93 Oxygen Delivery Oxygen Flow Rate 01/10/23 08:54 01/10/23 09:05 Temperature Pulse Rate 88 Respiratory Rate Blood Pressure Pulse Oximetry 91 Oxygen Delivery Nasal Cannula Oxygen Flow Rate 2 Intake/Output Intake/Output: Intake & Output 01/07/23 01/08/23 01/09/23 01/10/23 23:59 23:59 23:59 23:59 Intake Total 2820 3260 770 Output Total 700 450 450 Balance 2120 2810 320 Meds/Results Medications: Active Medications Generic Name Dose Route Start Last Admin Trade Name Freq PRN Reason Stop Dose Admin Acetaminophen 650 mg 01/08/23 05:16 01/10/23 01:13 Acetaminophen 325 Mg Tablet PO 650 mg Q4H PRN Administration Mild Pain (1-3) or Fever Al Hydrox/Mg Hydrox/Simeth
[2023-01-10] MEDS: SIMVASTATIN 20 MG TABLET PO (20:26)
[2023-01-10] MEDS: LATANOPROST 0.005% OP SOLN 2.5 ML BTL 1 DROP EACH EYE (20:27)
[2023-01-11] VITALS (12 sets, daily range): BP systolic 144–184; BP diastolic 83–94; PULSE 76–96; RESP 18–20; TEMP 36.2–36.8; O2SAT 86–100
[2023-01-11 06:06] LABS: Basophils Percent Auto 0.4 % (0.2-1.2); Eosinophils Absolute Auto 0.1 K/mm3 (0-0.3); Eosinophils Percent Auto 1.5 % (0-4.4); Hematocrit 32.9 % (37.0-47.0); Immature Granulocyte Absolute 0.05 K/mm3 (0.00-0.031); Immature Granulocyte Percent A 0.6 % (0-0.5); Lymphocytes Absolute Auto 1.01 K/mm3 (0.9-3.2); Lymphocytes Percent Auto 11.1 % (18.3-44.2); Mean Corpuscular HGB Conc 30.4 g/dl (32-36); Mean Corpuscular Hemoglobin 30.4 pg (26-34); Monocytes Absolute Auto 1.4 K/mm3 (0.1-0.6); Monocytes Percent Auto 15.4 % (2.6-8.5); Neutrophils Absolute Auto 6.5 K/mm3 (1.3-6.7); Platelet Count Result 227 k/mm3 (150-375); Red Blood Count 3.29 M/mm3 (4.2-5.4); Red Cell Distribution Width 13.8 % (11.5-14.5); White Blood Count 9.1 K/mm3 (4.5-10.0)
[2023-01-11 06:15] LABS: Albumin Level 2.8 g/dL (3.5-5.1); Anion Gap 4 mmol/L (8-16); Blood Urea Nitrogen 37 mg/dL (7-17); Calcium 9.2 mg/dL (8.4-10.2); Carbon Dioxide 25 mmol/L (22-30); Chloride 109 mmol/L (98-107); Estimated CRCL calculation 35 ml/min; Estimated Glomerular Filt Rate 47; Glucose 123 mg/dL (65-110); Phosphorus 3.4 mg/dL (2.5-4.5); Sodium 138 mmol/L (137-145)
[2023-01-11] MEDS: LEVOTHYROXINE SODIUM 25 MCG TABLET PO (06:17)
[2023-01-11 07:22] LABS: Folic Acid > 20.0 ng/mL (2.76->20); Vitamin B12 > 1000.0 pg/mL (239-931)
[2023-01-11] MEDS: ACIDOPHILUS/BULGARICUS CHEWABLE TABLET 1 TABLET BY MOUTH (08:05)
[2023-01-11] MEDS: dilTIAZem HCL 60 MG TABLET 120 MG PO ×2 (08:05→20:14)
[2023-01-11] MEDS: OPTI-GEN TAB 1 TABLET PO (08:05)
[2023-01-11] MEDS: FOLIC ACID 1 MG TABLET PO (08:05)
[2023-01-11] MEDS: METOPROLOL SUCCINATE EXT REL 100 MG TABCR 200 MG PO (08:05)
[2023-01-11] MEDS: CHOLECALCIFEROL 1,000 UNITS TABLET 5000 UNITS PO (08:05)
[2023-01-11] MEDS: APIXABAN 5 MG TABLET PO ×2 (08:05→20:14)
[2023-01-11] MEDS: FERROUS SULFATE 325 MG TABLET DR BY MOUTH ×3 (08:05→16:05)
[2023-01-11] MEDS: TOLNAFTATE 1% POWDER 45 GM BTL 1 APPLIC TOPICAL ×2 (08:06→20:16)
--- NOTE | 2023-01-11 09:51 | PC.NURSE ---
therapy informed this nurse that pt 02 drops with activity down to 85% RA, pt was able to recover to 94% with rest.
--- NOTE | 2023-01-11 15:14 | PC.NURSE ---
informed PFT of new home o2 evaluation placed by MD Spencer, MD Spencer would like to d.c pt today.
--- NOTE | 2023-01-11 15:19 | PC.NURSE ---
recheck bp 168/94 MD Spencer aware, NNO.
--- NOTE | 2023-01-11 15:20 | PC.NURSE ---
pt placed on ra per Md Spencer pt was stating at 100% on 2l nc in bed.
--- NOTE | 2023-01-11 15:41 | PC.NURSE ---
PFT conducting home . now
--- NOTE | 2023-01-11 15:57 | PC.NURSE ---
PFT informed this nurse that pt requires 2L of o2. MD Spencer informed.
--- NOTE | 2023-01-11 16:03 | PM.IMPN ---
Progress Note: A&P Assessment and Plan (1) Sepsis: Code(s): A41.9 - Sepsis, unspecified organism Status: Acute Assessment and Plan: Pateint presents with fever, leukocytosis, mild CHARLEY and elevated LFTs felt related to sepsis from UTI/bactermeia. UCx /: EColi that is jordan-sensitive BCx 01/07: Klebsiella 1of2 sets that is jordan sensitive BCx 01/09: NGTD. CXR on admission showing mild atelectasis in lingula. Klebsiella could be from urine or PNA. Started on Levaquin and patient is improving. WBC normal. Allergy to cephalosporin. Repeat CXR showing airspace opacity left lung base - suspect PNA. (2) Pneumonia: Code(s): J18.9 - Pneumonia, unspecified organism Status: Acute Assessment and Plan: CXR showing airspace disease and BCx growing Klebsiella that is not seen in the urine. Suspect PNA present on admission and could explain her hypoxia. Doubt PE since she is on Eliquis chronically. Continue Levaquin to complete a course. (3) Acute UTI: Code(s): N39.0 - Urinary tract infection, site not specified Status: Acute Assessment and Plan: UA noted and not too concerning for UTI but UCx positive with EColi. Continue Levaquin started 01/08 (4) Bacteremia: Code(s): R78.81 - Bacteremia Status: Acute Assessment and Plan: As above (5) Generalized weakness: Code(s): R53.1 - Weakness Status: Acute Assessment and Plan: Likely secondary to dehydration and sepsis. Continue PT/OT (6) Oxygen desaturation during sleep: Code(s): G47.34 - Idiopathic sleep related nonobstructive alveolar hypoventilation Status: Acute Assessment and Plan: Apnea link on 2L showing normal APnea Link. She does require O2 during the day. Possibly related to PNA. She has never been diagnosed with KARISHMA. May need O2 at home. Repeat ApneaLink on room air. (7) Hypertension: Code(s): I10 - Essential (primary) hypertension Status: Acute Assessment and Plan: Patient's blood pressure was reviewed on 01/11 Blood pressure elevated at times. Will continue current medications. Follow for now (8) Obstructive sleep apnea: Code(s): G47.33 - Obstructive sleep apnea (adult) (pediatric) Status: Acute Assessment and Plan: Unclear if patient carries this diagnosis. As above (9) Nausea & vomiting: Code(s): R11.2 - Nausea with vomiting, unspecified Status: Acute Assessment and Plan: Resolved Follow (10) Atrial fibrillation: Code(s): I48.91 - Unspecified atrial fibrillation Status: Acute Assessment and Plan: Patient with AFib noted by EKG. Suspect chronic. Continue Diltiazem and Toprol to control rate. Continue Eliquis. Plan DVT prophylaxis with Eliquis GI prophylaxis not indicated Code status full code Subjective Date/time seen: 01/11/23 16:03 Interval history: 87-year-old female with history of sleep apnea is presenting with fatigue and fever and currently being treated for UTI and dehydration. No problems overnight. Had restless legs. No hx of KARISHMA per family. Exam Narrative: AF 98.2 168/94 81 18 100% 2L Gen - NARD Chest - few basilar crackles o/w clear CV - irregularly irregular Abd - Soft, NT/ND, Positive BS Ext - no pedal edema Neuro - Alert, confused. Psych - Nml mood and affect Skin - Warm and dry Objective Data Vital Signs Vital Signs: Vital Signs - 24 hr 01/10/23 20:00 01/10/23 22:00 01/10/23 23:05 Temperature 97.8 F Pulse Rate 72 Respiratory Rate 18 Blood Pressure 145/80 H Pulse Oximetry 95 95 93 Oxygen Delivery Nasal Cannula Nasal Cannula Oxygen Flow Rate 2 2 Fraction of Inspired Oxygen 01/11/23 06:00 01/11/23 08:00 01/11/23 08:05 Temperature 97.3 F L Pulse Rate 78 80 Respiratory Rate 18 Blood Pressure 144/93 H Pulse Oximetry 96 97 Oxygen Delivery Nasal Cannula Oxy
--- NOTE | 2023-01-11 16:19 | HOMEO2EVAL ---
Evaluation was performed at [facility] Home Oxygen Evaluation RC: Home Oxygen (O2) Evaluation Start: 01/11/23 15:15 Freq: ONCE Status: Active Protocol: RPE Activity Type Activity Date Activity User E-sign Co-sign Detail Recorded Client Recorded Date Recorded By Document 01/11/23 15:30 DYLLAN [email or web address] 01/11/23 16:19 DYLLAN Document 01/11/23 15:31 DYLLAN [email or web address] 01/11/23 16:19 DYLLAN Document 01/11/23 15:35 DYLLAN [email or web address] 01/11/23 16:19 DYLLAN Document 01/11/23 15:45 DYLLAN [email or web address] 01/11/23 16:19 DYLLAN 01/11/23 01/11/23 01/11/23 15:30 15:31 15:35 Home O2 Evaluation [Oxygen] -Test Phase Resting Resting Exercise -Oxygen Delivery Room Air Nasal Cannula Nasal Cannula -Oxygen Flow Rate (L/min) 2 2 [Pulse Oximetry] -Pulse Oximetry (90-100 %) 86 L 91 94 [Pulse Rate] -Pulse Rate (60-100 beats/min) 82 96 [Comments] -Home Oxygen Evaluation Comments PT REQUIRES 2 L AT REST AND WITH ACTIVITY [Charges] -Treatment Charges O2 Evaluation - Inpatient 01/11/23 15:45 Home O2 Evaluation [Oxygen] -Test Phase Resting -Oxygen Delivery Nasal Cannula -Oxygen Flow Rate (L/min) 2 [Pulse Oximetry] -Pulse Oximetry (90-100 %) [Pulse Rate] -Pulse Rate (60-100 beats/min) [Comments] -Home Oxygen Evaluation Comments [Charges] -Treatment Charges
[2023-01-11] MEDS: levoFLOXacin 750 MG TABLET PO (20:14)
[2023-01-11] MEDS: SIMVASTATIN 20 MG TABLET PO (20:14)
[2023-01-11] MEDS: LATANOPROST 0.005% OP SOLN 2.5 ML BTL 1 DROP EACH EYE (20:15)
[2023-01-12 05:15] VITALS: BP 139/98; PULSE 88; RESP 20; TEMP 36.2; O2SAT 94
[2023-01-12] MEDS: LEVOTHYROXINE SODIUM 25 MCG TABLET PO (05:24)
[2023-01-12 05:41] LABS: Anion Gap 2 mmol/L (8-16); Blood Urea Nitrogen 35 mg/dL (7-17); Calcium 8.8 mg/dL (8.4-10.2); Carbon Dioxide 29 mmol/L (22-30); Chloride 107 mmol/L (98-107); Estimated CRCL calculation 38 ml/min; Estimated Glomerular Filt Rate 52; Glucose 108 mg/dL (65-110); Potassium 3.8 mmol/L (3.4-5.0); Sodium 138 mmol/L (137-145)
[2023-01-12 05:53] LABS: Alveolar/Arterial O2 Gradient 44.7 mmHg; Base Excess ABG 1.4 mEq/l (+/-2.0); Fractional Inspired Oxygen 21 %; HCO3 ABG 25.5 mEq/l (22.0-26.0); Oxygen Content ABG 13.2 %vol (16.0-22.0); Oxygen Saturation ABG 91.7 % (95.0-100.0); Oxyhemoglobin 89.5 % THb (90.0-100.0); PCO2 ABG 38.3 mmHg (35.0-45.0); PO2 ABG 59.2 mmHg (80.0-100.0); PO2 FiO2 Ratio Arterial Blood 2.82 %; Total Hemoglobin 10.5 g/dL (12.0-18.0); pH ABG 7.441 (7.350-7.450)
[2023-01-12 05:54] LABS: Site Drawn RIGHT BRACHIAL
[2023-01-12 05:55] LABS: Device ROOM AIR
[2023-01-12 08:31] VITALS: PULSE 90
[2023-01-12] MEDS: dilTIAZem HCL 60 MG TABLET 120 MG PO (08:31)
[2023-01-12] MEDS: METOPROLOL SUCCINATE EXT REL 100 MG TABCR 200 MG PO (08:31)
[2023-01-12] MEDS: ACIDOPHILUS/BULGARICUS CHEWABLE TABLET 1 TABLET BY MOUTH (08:31)
[2023-01-12] MEDS: CHOLECALCIFEROL 1,000 UNITS TABLET 5000 UNITS PO (08:31)
[2023-01-12] MEDS: CYANOCOBALAMIN 250 MCG TABLET PO (08:31)
[2023-01-12] MEDS: FOLIC ACID 1 MG TABLET PO (08:32)
[2023-01-12] MEDS: TOLNAFTATE 1% POWDER 45 GM BTL 1 APPLIC TOPICAL (08:32)
[2023-01-12] MEDS: APIXABAN 5 MG TABLET PO (08:32)
[2023-01-12] MEDS: FUROSEMIDE 20 MG TABLET PO (08:32)
[2023-01-12] MEDS: OPTI-GEN TAB 1 TABLET PO (08:32)
[2023-01-12] MEDS: FERROUS SULFATE 325 MG TABLET DR BY MOUTH ×2 (08:32→11:21)
--- NOTE | 2023-01-12 11:28 | PCRCNOTE ---
HOME O2 EVAL DONE, APNEA LINK DONE, PT REQUIRES HOME O2 AT 2 L AT REST, ACTIVITY AND NOCTURNALLY. SET UP WITH [facility]. TANK IN ROOM FOR TRANSPORT HOME, ASKED TO CONTACT DAUGHTER FOR SET UP ARRANGEMENTS.
--- NOTE | 2023-01-12 13:54 | PM.DS ---
DS: Admitting Diagnosis Discharge Date 01/12/23 Admitting Diagnosis Fever DS: Discharge Diagnosis Discharge Diagnosis (1) Sepsis: Code(s): A41.9 - Sepsis, unspecified organism Status: Acute (2) Pneumonia: Code(s): J18.9 - Pneumonia, unspecified organism Status: Acute (3) Acute UTI: Code(s): N39.0 - Urinary tract infection, site not specified Status: Acute (4) Bacteremia: Code(s): R78.81 - Bacteremia Status: Acute (5) Generalized weakness: Code(s): R53.1 - Weakness Status: Acute (6) Oxygen desaturation during sleep: Code(s): G47.34 - Idiopathic sleep related nonobstructive alveolar hypoventilation Status: Acute (7) Hypertension: Code(s): I10 - Essential (primary) hypertension Status: Acute (8) Obstructive sleep apnea: Code(s): G47.33 - Obstructive sleep apnea (adult) (pediatric) Status: Acute (9) Nausea & vomiting: Code(s): R11.2 - Nausea with vomiting, unspecified Status: Acute (10) Atrial fibrillation: Code(s): I48.91 - Unspecified atrial fibrillation Status: Acute DS: Summary Hospital Course Reason for hospitalization: 87-year-old female with history of sleep apnea is presenting with fatigue and fever and currently being treated for UTI and dehydration. Please see H&P for details. Hospital Course: Pateint presents with fever and found to have leukocytosis, mild CHARLEY and elevated LFTs felt related to sepsis from UTI/bacteremia. UCx 01/07: EColi that was jordan-sensitive. BCx growing Klebsiella 1of2 sets that was jordan-sensitive. BCx were repeated and remained negative. CXR on admission showing mild atelectasis in lingula. Repeat CXR showing airspace opacity left lung base. Klebsiella probably related to PNA. She was started on Levaquin and had clinical improvement. WBC normalized. Suspect PNA was present on admission and could explain her hypoxia. Family does not believe that the patient was ever told she had KARISHMA. She was hypoxic here. Apnea link on room air showing 107minutes with SpO2<88%. Apnea link on 2L showing normal Apnea Link. Home O2 evaluation showing she does require 2L at rest, with activity and nocturnally. Patient with AFib noted by EKG. Suspect chronic. We continued Diltiazem and Toprol to control rate. She was continued on her Eliquis. She had clinical improvement. She overall did well adn was du to be discharged on 01/12/23. Discussed with family. Status at Discharge Cognitive/behavioral status at discharge: stable Time Spent with Patient Time attestation: Total time spent providing and/or coordinating discharge services: 38 minutes Time spent: Greater than 30 minutes Exam Narrative: AF 97.2 139/98 90 20 94% 2L Gen - NARD sitting up in chair Chest - distant BS CV - irregularly irregular Abd - Soft, NT/ND, Positive BS Ext - no pedal edema Psych - Nml mood and affect Skin - Warm and dry DS: Data Data Completed and Pending Labs on day of discharge: Labs from last 24 hours 01/12/23 01/12/23 05:31 05:08 Puncture Site Right brachial ABG pH 7.441 ABG pCO2 38.3 ABG pO2 59.2 L ABG PO2/FiO2 Ratio 2.82 ABG HCO3 25.5 ABG O2 Saturation 91.7 L ABG O2 Content 13.2 L ABG Base Excess 1.4 A-a Gradient 44.7 Oxyhemoglobin 89.5 L Total Hemoglobin 10.5 L O2 Delivery Device Room air O2 Liters/Min 0.0 FiO2 21 Sodium 138 Potassium 3.8 Chloride 107 Carbon Dioxide 29 Anion Gap 2 L BUN 35 H Creatinine 1.00 Estim Creat Clear Calc 38 Estimated GFR 52 L Glucose 108 Calcium 8.8 Preliminary micro results at discharge 01/09/23 15:38 Blood Culture - Preliminary Blood 01/09/23 15:36 Blood Culture - Preliminary Blood 01/07/23 23:45 Blood Culture - Preliminary Blood Discharge Plan Discharge Attending physician on discharge: Raul Spencer Consulting providers: Kai Rhodes
== END 2023-01-12 14:50 | disposition home health service (06) | DRG 871 ==
LOC: ANHED 22:02 → ANH2MED 01-08 03:30
PROVIDERS: Emergency Medicine; Student in an Organized Health Care Education/Training Program; Admitting Provider Family Medicine; Emergency Provider Nurse Practitioner; PCP Physician Assistant; Visit Provider Internal Medicine
DX: A41.9 Sepsis, unspecified organism (principal); J18.9 Pneumonia, unspecified organism; N39.0 Urinary tract infection, site not specified; I43 Cardiomyopathy in diseases classified elsewhere; N18.4 Chronic kidney disease, stage 4 (severe); J98.11 Atelectasis; N17.9 Acute kidney failure, unspecified; R09.02 Hypoxemia; I13.10 Hypertensive heart and chronic kidney disease without heart failure, with stage 1 through stage 4 chronic kidney disease, or unspecified chronic kidney disease; B96.1 Klebsiella pneumoniae [K. pneumoniae] as the cause of diseases classified elsewhere; B96.20 Unspecified Escherichia coli [E. coli] as the cause of diseases classified elsewhere; G47.34 Idiopathic sleep related nonobstructive alveolar hypoventilation; G47.33 Obstructive sleep apnea (adult) (pediatric); I48.91 Unspecified atrial fibrillation; E86.0 Dehydration; E78.5 Hyperlipidemia, unspecified; Z20.822 Contact with and (suspected) exposure to COVID-19
CPT/HCPCS: 36415; 36600; 71045; 71046; 80048; 80053; 80069; 81001; 82607; 82746; 82805; 83605; 83690; 83735; 83880; 84100; 84443; 84484; 85025; 85380; 85610; 87040; 87077; 87086; 87186; 87636; 93005; 94618; 94762; 96361; 96365; 96375; 97110; 97161; 97165; 97530; 97535; 99285; A9270; J1956; J2405; J7030

== ENCOUNTER 2023-09-07 13:17 | Outpatient (CLI) | payer MEDICARE, SELFPAY ==
--- NOTE | ~2023-09-07 | XR_ITS ---
XR chest 2V Ordering provider: Sarai Mary History: 88 years Female with . Other disorders of vitreous body; mycobacterium tuberculosis . Comparison: January 11, 2023 FINDINGS: MEDIASTINUM: The cardiac silhouette is slightly enlarged. Congestive makenzie. LUNGS: No infiltrates, effusions or pneumothorax. OTHER: Sliding hiatus hernia. No free air under the diaphragm. Degenerative the spine. IMPRESSION: No acute cardiopulmonary pathology. Reviewed, dictated and finalized at location A.
== END 2023-09-07 13:18 ==
PROVIDERS: PCP Physician Assistant
DX: H43.89 Other disorders of vitreous body (principal); H40.1131 Primary open-angle glaucoma, bilateral, mild stage; Z96.1 Presence of intraocular lens; H26.493 Other secondary cataract, bilateral; H35.3113 Nonexudative age-related macular degeneration, right eye, advanced atrophic without subfoveal involvement; H35.3223 Exudative age-related macular degeneration, left eye, with inactive scar
CPT/HCPCS: 71046